=== PATIENT | female | born 1970 | race American Indian/Alaskan Native ===

== ENCOUNTER 2017-11-05 16:00 | Outpatient (CLI) | payer BC ==
--- NOTE | 2017-11-05 22:19 | XRay Report ---
FINAL REPORT PROCEDURE: XR KNEE 4+V RT TECHNIQUE: Four view right knee HISTORY: RIGHT KNEE PAIN COMPARISON: No prior studies are available for comparison. FINDINGS: Severe degenerative changes of the right knee, mostly medial. There is soft tissue swelling present. There is small suprapatellar effusion. Superior greater than inferior patellar pole spurring. IMPRESSION: Degenerative changes right knee. Small effusion. No fracture. Moderate soft tissue swelling.
== END 2017-11-05 16:01 | disposition home or self-care (01) ==
LOC: SPVIMAG 16:00
PROVIDERS: ATTEND Orthopaedic Surgery Sports Medicine
DX: M17.11 Unilateral primary osteoarthritis, right knee (principal)